=== PATIENT | female | born 1990 | race Two or more races ===

== ENCOUNTER 2018-04-29 07:51 | Day surgery (SDC) | payer MEDICAID ==
[2018-04-22 14:26] LABS: BASOPHILS % (AUTO) 0.3 % (0-1); EOSINOPHILS # (AUTO) 0.1 X10'3 (0-0.9); EOSINOPHILS % (AUTO) 1.3 % (0-6); LYMPHOCYTES # (AUTO) 2.1 X10'3 (1.1-4.8); LYMPHOCYTES % (AUTO) 34.7 % (21-51); MEAN CORPUSCULAR HEMOGLOBIN 28.6 PG (27.0-31.0); MEAN CORPUSCULAR VOLUME 86.5 FL (78-98); MEAN PLATELET VOLUME 7.8 FL (7.4-10.4); MONOCYTES # (AUTO) 0.4 X10'3 (0-0.9); MONOCYTES % (AUTO) 6.8 % (2-12); NEUTROPHILS # (AUTO) 3.5 X10'3 (1.8-7.7); NEUTROPHILS % (AUTO) 56.9 % (42-75); PRE OP HEMATOCRIT 34.7 % (35.0-45.0); PRE OP HEMOGLOBIN 11.5 g/dL (12.0-16.0); PRE OP PLATELET COUNT 279 X10'3 (140-440); RED BLOOD COUNT 4.01 X10'6 (4.20-5.60); RED CELL DISTRIBUTION WIDTH 15.8 % (11.5-14.5)
[2018-04-22 14:49] LABS: HCG SERUM QL NEGATIVE
[2018-04-22 14:52] LABS: ALBUMIN 3.4 G/DL (3.4-5.0); ALBUMIN/GLOBULIN RATIO 0.9 (1.1-1.5); ALKALINE PHOSPHATASE 95 IU/L (46-116); BLOOD UREA NITROGEN 14 MG/DL (7-18); BUN/CREATININE RATIO 22.2 (6.6-38.0); CALCIUM 8.5 MG/DL (8.5-10.1); CHLORIDE 105 MMOL/L (99-107); CREATININE 0.63 MG/DL (0.40-0.90); PRE OP ALT 40 U/L (30-65); PRE OP ANION GAP 8 (8-16); PRE OP AST 23 U/L (10-37); PRE OP BILIRUB, TOTAL 0.4 MG/DL (0.0-1.0); PRE OP GLUCOSE 92 MG/DL (70-104); PRE OP POTASSIUM 4.1 MMOL/L (3.4-5.1); PRE OP SODIUM 142 MMOL/L (135-145); TOTAL CARBON DIOXIDE 28.7 MMOL/L (24-32); TOTAL PROTEIN 7.4 G/DL (6.4-8.2); eGFR > 90 ML/MIN
[~2018-04-29] VITALS: Ht 157.5 cm; Wt 62.1 kg
[2018-04-29] VITALS (10 sets, daily range): BP systolic 101–132; BP diastolic 53–91
[~2018-04-29 07:51] MED LIST: PREN-55 PO; cefazolin/dext.iso 2gm/100 ML IV ONE; famotidine 20mg tablet PO ONE; ringers solution, lacted 1,000 ML IV SCH
[2018-04-29] MEDS ORDERED: BUPIVAcaine/PF 2.5mg/ml (0.25%) 10ml vial ONE (09:29)
[2018-04-29] MEDS ORDERED: sevoflurane 250ml liquid IH ONE (09:43)
[2018-04-29] MEDS ORDERED: midazolam 2 mg/2 ml injection ONE (09:45)
[2018-04-29] MEDS ORDERED: fentaNYL/PF 50MCG/1 ML 2ML syringe ONE (09:45)
[2018-04-29] MEDS ORDERED: glycopyrrolate 0.2mg/ml inj ONE (09:52)
[2018-04-29] MEDS ORDERED: propofol inj 20 ML IV ONE (09:52)
[2018-04-29] MEDS ORDERED: neostigmine methylsulfate 1 MG/ML 10ml vial ONE (09:52)
[2018-04-29] MEDS ORDERED: ondansetron/PF 4mg/2ml inj ONE (09:52)
[2018-04-29] MEDS ORDERED: rocuronium 10mg/ml inj IV ONE (09:52)
[2018-04-29] MEDS ORDERED: LIDOcaine 2% (20mg/ml) 5ml vial ONE (09:52)
[2018-04-29] MEDS ORDERED: dexamethasone sod phosphate 4mg/ml inj. ONE (09:52)
[2018-04-29] MEDS ORDERED: ringers solution, lacted 1,000 ML IV SCH (10:36)
[2018-04-29] MEDS ORDERED: meperidine/PF 25mg/ml syringe IV PRN ×3 (10:40)
[2018-04-29] MEDS ORDERED: morphine 4 MG/ML inj SYRINge IV PRN ×2 (10:40)
[2018-04-29] MEDS ORDERED: ondansetron/PF 4mg/2ml inj IV PRN (10:40)
[2018-04-29] MEDS ORDERED: proCHLORperazine 10 MG/2 ml inj IV PRN (10:40)
== END 2018-04-29 11:57 | disposition home or self-care (01) ==
LOC: PAS 07:51
PROVIDERS: ATTEND Obstetrics & Gynecology
DX: Z30.2 Encounter for sterilization (principal); Z79.899 Other long term (current) drug therapy
CPT/HCPCS: 36415; 58670; 80053; 84703; 85025; A6258; A6402; J0690; J1100; J2001; J2175; J2250; J2405; J2704; J2710; J3010; J3490; J7120; A7000